=== PATIENT | female | born 1960 | race Caucasian/White ===

== ENCOUNTER → 2017-10-19 | Outpatient (CLI) | payer MEDICAID | LOC: FIMAGING 10-08 10:00 | PROVIDERS: ATTEND Physician Assistant | DX: N64.4 Mastodynia (principal); N63.20 Unspecified lump in the left breast, unspecified quadrant | CPT/HCPCS: G0204 ==

== ENCOUNTER → 2018-11-15 | Outpatient (CLI) | payer MEDICAID | LOC: FIMAGING 14:43 | PROVIDERS: ATTEND Physician Assistant | DX: Z12.31 Encounter for screening mammogram for malignant neoplasm of breast (principal) ==